=== PATIENT | male | born 1960 | race Caucasian/White ===

== ENCOUNTER 2023-09-25 13:00 | Outpatient (RCR) | payer BC, SELFPAY ==
--- NOTE | 2023-06-26 09:46 | ONC.NURNOTE ---
Dx: prostate cancer
--- NOTE | 2023-06-26 11:28 | URNOTE ---
Per Ariel at of ([phone]). Prior auth is not required for Shikha ([id number]). 06/26/2023-07/08/2023
--- NOTE | 2023-06-28 12:58 | URNOTE ---
Cyclophosphamide (J9070) has been approved for 7 doses every 21 days. 03/09/2023-07/17/2023 PA #[id number] Doxorubicin (J9000) has been approved for 7 doses every 21 days. 03/09/2023-07/17/2023 PA #[id number] Dexamethasone (J1100),Fosaprepitant (J1453), Palonosetron (J2469), Fulphila (Q5108)Normal Saline (J7050) and Heparin Flush (J1642) have been denied as authorization criteria have not been met. Medication is not approved for indicated diagnosis.
[2023-07-04 13:58] VITALS: BP 129/68; PULSE 61; RESP 16; TEMP 36.4; O2SAT 96
[2023-07-04] MEDS: LEUPROLIDE ACETATE 7.5 MG (SQ) SYRINGE SUBCUT (14:23)
--- NOTE | 2023-07-19 15:34 | URNOTE ---
Per Del at [facility] [phone], prior authorization is not required for Shikha ([id number]). Call ref # [id number]
[2023-08-01 10:30] VITALS: BP 127/78; PULSE 65; RESP 16; TEMP 36.2; O2SAT 96
[2023-08-01] MEDS: LEUPROLIDE ACETATE 7.5 MG (SQ) SYRINGE SUBCUT (11:09)
[2023-08-28 10:17] VITALS: BP 146/84; PULSE 86; RESP 16; TEMP 36.1; O2SAT 100
[2023-08-28] MEDS: LEUPROLIDE ACETATE 7.5 MG (SQ) SYRINGE SUBCUT (10:43)
[2023-09-25 12:54] VITALS: BP 135/81; PULSE 62; RESP 16; TEMP 36.2; O2SAT 99
[2023-09-25] MEDS: LEUPROLIDE ACETATE 22.5 MG (SQ) SYRINGE SUBCUT (13:01)
== END 2023-12-31 23:59 | disposition home or self-care (01) ==
LOC: CCIC 13:00
PROVIDERS: Visit Provider Nurse Practitioner
DX: C61 Malignant neoplasm of prostate (principal)
CPT/HCPCS: 96401; J9217